=== PATIENT | male | born 1985 | race Caucasian/White ===

== ENCOUNTER 2016-10-12 09:20 | Emergency (ER) | payer BC ==
[~2016-10-12] VITALS: Ht 182.9 cm; Wt 104.5 kg
[2016-10-12 09:27] VITALS: BP 133/87; TEMP 98.8
[2016-10-12 11:19] VITALS: PULSE 82
== END 2016-10-12 11:20 | disposition home or self-care (01) ==
LOC: COL.ER 09:20
DX: S61.213A Laceration without foreign body of left middle finger without damage to nail, initial encounter (principal); Z23 Encounter for immunization; W26.8XXA Contact with other sharp object(s), not elsewhere classified, initial encounter